=== PATIENT | female | born 1990 | race Caucasian/White ===

== ENCOUNTER 2018-10-27 12:40 | Emergency (ER) | payer SELFPAY | END 2018-10-27 14:25 | disposition home or self-care (01) | LOC: ER 12:40 ==

== ENCOUNTER 2018-11-25 22:23 | Emergency (ER) | payer SELFPAY ==
[~2018-11-25] VITALS: Ht 160 cm; Wt 136.1 kg
--- NOTE | 2018-11-25 22:40 | ED EENT ---
History of Present Illness General Chief Complaint: Dental Problems/Pain Stated Complaint: DENTAL PAIN Source: patient Exam Limitations: no limitations History of Present Illness Date Seen by Provider: Nov 25, 2018 Time Seen by Provider: 22:38 Initial Comments L to ER per EMS with reports of right upper and lower dental pain, bilateral earache. She was seen at the walk-in clinic today and given an antibiotic for bilateral ear infection. Pain is so severe she came to the emergency room tonight. Timing/Duration: gradual Severity: moderate Location: dental Associated Symptoms: tooth pain Allergies and Home Medications Allergies Coded Allergies: No Known Drug Allergies (Unverified , 10/27/18) Home Medications No Active Prescriptions or Reported Meds Patient Home Medication List Home Medication List Reviewed: Yes Review of Systems Review of Systems Constitutional: see HPI Eyes: No Symptoms Reported Ears: No Symptoms Reported Nose: no symptoms reported Mouth: no symptoms reported Throat: no symptoms reported Respiratory: no symptoms reported Cardiovascular: no symptoms reported Musculoskeletal: no symptoms reported Past Ukjefle-Mpmqdv-Udnalu Hx Patient Social History Recent Foreign Travel: No Contact w/Someone Who Travel: No Seasonal Allergies Seasonal Allergies: No Past Medical History Surgeries: No Respiratory: No Cardiac: No Neurological: No Reproductive Disorders: No Genitourinary: No Gastrointestinal: No Musculoskeletal: No Endocrine: No HEENT: No Cancer: No Psychosocial: No Integumentary: No Physical Exam Vital Signs Vital Signs - First Documented 11/25/18 11/25/18 22:30 23:30 Temp 98.9 Pulse 65 Resp 22 B/P (MAP) 141/100 (114) Pulse Ox 100 Height, Weight, BMI Height: 5'3.00" Weight: 300lbs. oz. 136.242718eu; BMI Method:Stated General Appearance: WD/WN, no apparent distress Eyes: bilateral eye normal inspection, bilateral eye PERRL, bilateral eye EOMI Ears: right ear TM dull, right ear TM red; bilateral ear auricle normal, bilateral ear canal normal Mouth/Throat: other (no visualized fracture or carious teeth at the location of pain. No fluctuant abscess.) Neck: non-tender, full range of motion Gastrointestinal: normal bowel sounds, non tender, soft Neurologic/Psychiatric: alert, normal mood/affect, oriented x 3 Skin: normal color, warm/dry Progress/Results/Core Measures Results/Orders My Orders Orders - LOULOU GIBBONS APRN Lidocaine 2% Viscous 15 Ml (Xylocaine Vi (11/25/18 22:45) Ketorolac Injection (Toradol Injection) (11/25/18 22:45) Hydrocodone/Apap 5/325 Tablet (Lortab 5 (11/25/18 22:45) Benzocaine Extension Tube (Hurricaine Ex (11/25/18 22:45) Ketorolac Injection (Toradol Injection) (11/25/18 23:00) Departure Impression Primary Impression: Pain, dental Additional Impression: Otitis media Qualified Codes: H66.001 - Acute suppurative otitis media without spontaneous rupture of ear drum, right ear Disposition: HOME, SELF-CARE Condition: Stable Departure-Patient Inst. Decision time for Depature: 22:39 Referrals: NO,LOCAL PHYSICIAN (PCP/Family) Primary Care Physician Patient Instructions: Ear Infections (Otitis Media), Dental Pain Add. Discharge Instructions: Use the lidocaine soaked gauze to the area of pain at the back of your teeth 3-4 times daily as needed. Continue to take Tylenol and ibuprofen for pain control. You must use both to be effective. Continue the antibiotics given today. Call your dentist tomorrow to make an appointment for follow-up, see if anything sooner can be arranged. All discharge instructions reviewed with patient and/or family. Voiced understanding. Scripts No Active Prescriptions or Reported Meds LOULOU GIBBONS APRN Nov 25, 2018 22:40
[2018-11-25] MEDS ORDERED: HYDROcodone/APAP 5 MG/325 MG (LORTAB) TAB PO ONE (22:45)
[2018-11-25] MEDS ORDERED: HURRICAINE EXT TUBE (BENZOCAINE) ONE (22:45)
[2018-11-25] MEDS ORDERED: LIDOCAINE 2% VISCOUS 15 ML UDC MM ONE (22:45)
[2018-11-25] MEDS ORDERED: KETOROLAC 30 MG/ML VIAL IVP ONE (22:45)
[2018-11-25] MEDS ORDERED: KETOROLAC 30 MG/ML VIAL IM ONE (23:00)
[2018-11-25 23:30] VITALS: BP 138/99
--- OUTSIDE RECORDS SUMMARY | 2018-11-26 02:23 | XMS REPORT | Continuity of Care Document ---
Author Organization Unknown Address Unknown Allergies There is no data. Medications There is no data. Problems There is no data. Procedures There is no data. Results Test Result Range TSH - 11/05/18 09:32 TSH 4.80 mIU/L NRG TSH w/ FREE T4 - 11/11/18 11:51 TSH 2.97 mIU/L NRG T4, FREE 0.9 ng/dL 0.8-1.8 Encounters ACCT No. Visit Date/Time Discharge Status Pt. Type Provider Facility Loc./Unit Complaint [id number] 11/24/2018 12:00:00 ACT Outpatient MAIA OCHOA LAC [facility] [id number] 11/11/2018 12:00:00 Document Registration [id number] 11/05/2018 08:00:00 Document Registration
== END 2018-11-25 23:33 | disposition home or self-care (01) ==
LOC: ER 22:23 → EDUNIT# 22:23 → ER 23:33
DX: K08.89 Other specified disorders of teeth and supporting structures (principal); H66.91 Otitis media, unspecified, right ear
CPT/HCPCS: 96372; 99284

== ENCOUNTER → 2019-11-13 | Outpatient (CLI) | payer MEDICAID ==
--- NOTE | 2019-11-13 17:00 | Diagnostic Imaging Report ---
Indication: Left foot pain 3 views of the left foot show no fracture, dislocation or other acute abnormalities. IMPRESSION: Negative left foot Dictated by: Dictated on workstation # [id number]
== END ==
LOC: RAD 16:36
PROVIDERS: ATTEND Nurse Practitioner Family
DX: S99.922A Unspecified injury of left foot, initial encounter (principal)
CPT/HCPCS: 73630

== ENCOUNTER 2020-02-25 12:14 | Outpatient (CLI) | payer MEDICAID | END 2020-02-25 12:50 | disposition home or self-care (01) | LOC: SLEEP 12:14 | PROVIDERS: ATTEND Surgery | DX: G47.33 Obstructive sleep apnea (adult) (pediatric) (principal); E66.9 Obesity, unspecified ==

== ENCOUNTER → 2021-07-26 | Outpatient (CLI) | payer MEDICAID ==
--- NOTE | 2021-07-26 12:29 | Diagnostic Imaging Report ---
PROCEDURE: Pelvic comp/transvaginal sonogram. TECHNIQUE: Complete transabdominal and transvaginal pelvic ultrasound was performed. In addition, limited pelvic Doppler was performed. INDICATION: Pelvic pain. FINDINGS: Uterus is retroverted measuring 7.0 x 4.2 x 6.2 cm. Endometrium is 5 mm in thickness. No myometrial mass is detected. Right ovary measures 2.5 x 1.9 x 2.1 cm. There is blood flow to the right ovary. Left ovary cannot be visualized due to bowel gas and patient body habitus. No adnexal mass or free fluid is detected. IMPRESSION: Nonvisualized left ovary. The study is otherwise unremarkable. Dictated by: Dictated on workstation # [id number]
== END ==
LOC: RAD 11:00
PROVIDERS: ATTEND Obstetrics & Gynecology
DX: R10.2 Pelvic and perineal pain (principal)
CPT/HCPCS: 76830; 76856